=== PATIENT | female | born 1975 | race Native Hawaiian/Other Pacific Islander ===

== ENCOUNTER 2020-10-25 01:47 | Emergency (ER) | payer OTHER ==
[2020-10-25] MEDS ORDERED: ASPIRIN 325 MG TAB PO ONE ×3 (02:43→07:30)
--- NOTE | 2020-10-25 03:26 | XRay Report ---
CHEST 2 VIEWS INDICATION / CLINICAL INFORMATION: chest pain. FINDINGS: SUPPORT DEVICES: None. HEART / MEDIASTINUM: No significant abnormality. LUNGS / PLEURA: No significant pulmonary or pleural abnormality. No pneumothorax. ADDITIONAL FINDINGS: No significant additional findings. IMPRESSION: 1. No acute findings. Signer Name: Koby Ramos MD Signed: 10/25/2020 3:21 AM Workstation Name: [id number]
[2020-10-25 03:29] LABS: Basophils # (Auto) 0.1 K/mm3 (0.0-0.1); Basophils % (Auto) 0.9 % (0.0-1.8); Eosinophils # (Auto) 0.4 K/mm3 (0.0-0.4); Eosinophils % (Auto) 4.7 % (0.0-4.3); Hematocrit 37.2 % (30.3-42.9); Hemoglobin 12.6 gm/dl (10.1-14.3); Lymphocytes # (Auto) 2.8 K/mm3 (1.2-5.4); Lymphocytes % (Auto) 35.6 % (13.4-35.0); Mean Corpuscular HGB Conc 34 % (30-34); Mean Corpuscular Volume 83 fl (79-97); Monocytes # (Auto) 0.5 K/mm3 (0.0-0.8); Monocytes % (Auto) 6.6 % (0.0-7.3); Platelet Count 283 K/mm3 (140-440); Red Blood Count 4.46 M/mm3 (3.65-5.03); Red Cell Distribution Width 14.7 % (13.2-15.2)
[2020-10-25 04:00] LABS: Alanine Aminotransferase 14 units/L (7-56); Albumin 4.8 g/dL (3.9-5); Blood Urea Nitrogen 13 mg/dL (7-17); Calcium 9.8 mg/dL (8.4-10.2); Hemolysis Index 3
[2020-10-25 04:03] LABS: BUN/Creatinine Ratio 22
[2020-10-25] MEDS ORDERED: cloNIDine 0.1 MG TAB PO ONE (06:18)
--- NOTE | 2020-10-25 06:24 | Emergency Department Report ---
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 Patient states she has had her elevated blood pressure x1 year. She has been on hydrochlorothiazide 12.5 mg daily. Patient has been compliant with her medications. For the past 3 days she notes her blood pressure has been elevated as high as 210/152 at home. Patient has an intermittent headache (at the top of her head) that increases when her pressure is high. Headache onset was gradual and currently rated 6/10 in intensity. She denies blurry vision, weakness, numbness, or neck pain or current nausea or vomiting. She also complains of intermittent chest pain radiating to the back. Patient denies chest pain currently. No aggravating or alleviating factors reported. She denies shortness of breath, diaphoresis, or leg edema. She denies family history of CAD and does not smoke cigarettes. Patient reports a negative outpatient stress test last year. - Related Data Previous Rx's Medication Instructions Recorded Last Taken Type labetaloL [Labetalol 100mg TAB] 100 mg PO BID #60 tablet 10/25/20 Unknown Rx Allergies Allergy/AdvReac Type Severity Reaction Status Date / Time No Known Allergies Allergy Verified 10/25/20 02:43 Heart Score - HEART Score History: Slightly suspicious EKG: Normal Age: < 45 Risk factors: 1-2 risk factors Troponin: < normal limit HEART Score: 1 - EKG Read Time Time EKG Completed: 02:47 EKG Read Time: 06:21 ED Review of Systems ROS: Stated complaint: HIGH BP,CHEST PAIN,HEADACHE,NAUSEA Other details as noted in HPI Comment: All other systems reviewed and negative ED Past Medical Hx - Past Medical History Previous Medical History?: Yes Hx Hypertension: Yes - Surgical History Past Surgical History?: No - Social History Smoking Status: Never Smoker Substance Use Type: None - Medications Home Medications: Home Medications Medication Instructions Recorded Confirmed Last Taken Type labetaloL [Labetalol 100mg TAB] 100 mg PO BID #60 tablet 10/25/20 Unknown Rx ED Physical Exam - General Limitations: No Limitations - Other Other exam information: General: No acute distress Head: Atraumatic Eyes: normal appearance ENT: Moist mucous membranes Neck: Normal appearance, no midline tenderness Chest: Clear to auscultation bilaterally CV: Regular rate and rhythm Abdomen: Soft, normal bowel sounds, nontender, nondistended, no rebound or guarding Back: Normal inspection Extremity: Normal inspection, full range of motion, no calf tenderness or leg ed kenneth Neuro: Alert O x 3, no facial asymmetry, speech clear, no gross motor sensory deficit Psych: Appropriate behavior Skin: No rash ED Course Vital Signs 10/25/20 10/25/20 10/25/20 02:41 06:16 06:24 Temperature 98.5 F Pulse Rate 106 H 91 H Respiratory 18 17 18 Rate Blood Pressure 197/100 Blood Pressure 189/115 [Left] O2 Sat by Pulse 99 99 98 Oximetry 10/25/20 06:49 Temperature Pulse Rate 88 Respiratory Rate Blood Pressure 188/94 Blood Pressure [Left] O2 Sat by Pulse Oximetry - Reevaluation(s) Reevaluation #1: 10/25/20 09:25 Current vitals respiratory rate 18, BP 133/69, HR 70, 98% on room air SCOUT score - Scout Score Age > 65: (0) No Aspirin use within the Past 7 Days: (0) No 3 or more CAD Risk Factors: (0) No 2 or more Angina events in past 24 hrs: (0) No Known CAD with more than 50% Stenosis: (0) No Elevated Cardiac Markers: (0) No ST Deviation Greater than 0.5mm: (0) No SCOUT Score: 0 ED Medical Decision Making - Lab Data Result diagrams: 10/25/20 03:04 10/25/20 03:04 Lab Results 10/25/20 10/25/20 10/25/20 Range/Units 03:04 03:04 05:50 WBC 7.9 (4.5-11.0) K/mm3 RBC 4.46 (3.65-5.03) M/mm3 Hgb 12.6 (10.1-14.3) gm/dl Hct 37.2 (30.3-42.9) % MCV 83 (79-97) fl MCH 28 (28-32) pg MCHC 34 (30-34) % RDW 14.7 (13.2-15.2) % Plt Count 283 (140-440) K/mm3 Lymph % (Auto) 35.6 H (13.4-35.0) % Scurry % (Auto) 6.6 (0.0-7.3) % Eos % (Auto) 4.7 H (0.0-4.3) % Baso % (Auto) 0.9 (0.0-1.8) % Lymph # (Auto) 2.8 (1.2-5.4) K/mm3 Scurry # (Auto) 0.5 (0.0-0.8) K/mm3 Eos # (Auto) 0.4 (0.0-0.4) K/mm3 Baso # (Auto) 0.1 (0.0-0.1) K/mm3 Seg Neutrophils % 52.2 (40.0-70.0) % Seg Neutrophils # 4.1 (1.8-7.7) K/mm3 Sodium 138 (137-145) mmol/L Potassium 4.0 (3.6-5.0) mmol/L Chloride 101.1 (98-107) mmol/L Carbon Dioxide 29 (22-30) mmol/L Anion Gap 12 mmol/L BUN 13 (7-17) mg/dL Creatinine 0.6 (0.6-1.2) mg/dL Estimated GFR > 60 ml/min BUN/Creatinine Ratio 22 % Glucose 124 H (65-100) mg/dL Calcium 9.8 (8.4-10.2) mg/dL Total Bilirubin 0.20 (0.1-1.2) mg/dL AST 11 (5-40) units/L ALT 14 (7-56) units/L Alkaline Phosphatase 123 (35-129) units/L Troponin T < 0.010 < 0.010 (0.00-0.029) ng/mL Total Protein 7.6 (6.3-8.2) g/dL Albumin 4.8 (3.9-5) g/dL Albumin/Globulin Ratio 1.7 % - EKG Data -: EKG Interpreted by Mt EKG shows normal: sinus rhythm Rate: normal - EKG Data 10/25/20 07:05 Repeat EKG performed at 7 AM without acute changes or ischemia. - Radiology Data Radiology results: report reviewed CHEST 2 VIEWS INDICATION / CLINICAL INFORMATION: chest pain. FINDINGS: SUPPORT DEVICES: None. HEART / MEDIASTINUM: No significant abnormality. LUNGS / PLEURA: No significant pulmonary or pleural abnormality. No pneumothorax. ADDITIONAL FINDINGS: No significant additional findings. IMPRESSION: 1. No acute findings. - Medical Decision Making 45-year-old female presents to the hospital uncontrolled hypertension despite BP compliance. She has a combination of headache and chest pain complaints which worsen when blood pressure becomes more elevated. Patient does not have any neurologic symptoms or nuchal rigidity. BP is trending downward with labetalol p.o. and symptoms are improving. Patient also provided aspirin and Tylenol. Cardiac work-up unremarkable with a heart score of 1, troponin negative x2, and patient reports a unremarkable outpatient stress test last year. CT angiogram negative for pulmonary embolism or dissection. headache also improved with BP improvement in the absence of neurologic symptoms. Patient will be started on labetalol 100 mg twice daily to take in addition to hydrochlorothiazide 12.5 mg for blood pressure control. Patient follow-up with PMD/Ramos physician encouraged. Critical Care Time: No Critical care attestation.: If time is entered above; I have spent that time in minutes in the direct care of this critically ill patient, excluding procedure time. ED Disposition Clinical Impression: Uncontrolled hypertension, Headache, Chest pain Disposition: 01 HOME / SELF CARE / HOMELESS Is pt being admited?: No Does the pt Need Aspirin: No Condition: Stable Instructions: Nonspecific Chest Pain, Adult, Hypertension, Adult, Hypertension (ED) Additional Instructions: Take the medication as prescribed. Continue your current blood pressure medicine. follow-up with your doctor or doctor/clinic provided. Return if sy mptoms worsen as indicated by your discharge instructions. [place] el medicamento segn lo recetado. Contine con guo medicamento actual para la presin arterial. Seguimiento con guo mdico o mdico/clnica proporcionado. Regrese si los sntomas empeoran segn lo indicado por jimena instrucciones de walter . Prescriptions: labetaloL [Labetalol 100mg TAB] 100 mg PO BID #60 tablet Referrals: PRIMARY CARE, [Primary Care Provider] - 3-5 Days ESTRELLA AUSTIN MD [Staff Physician] - 3-5 Days (cardiology ) Time of Disposition: 09:28 Print Language: ProfStream
--- NOTE | 2020-10-25 07:56 | Cat Scan Report ---
CTA chest with contrast INDICATION : High BP, chest pain with headache and nausea. 100 ml omni 350 . TECHNIQUE: Axial imaging performed through the chest, with contrast bolus timing set to maximize opa cification of the pulmonary arteries. 3-plane MIP reformatted images were obtained. All CT scans at this location are performed using CT dose reduction for ALARA by means of automated exposure control. 100 mL of intravenous contrast administered. COMPARISON: None FINDINGS: Bolus/PTE: Contrast bolus timing is adequate. No filling defect is present to suggest PTE. Mediastinum: Heart and great vessels appear normal. No pathologic mediastinal adenopathy. Lungs: Lungs are clear. Upper abdomen: Limited imaging of the upper abdomen shows nothing acute. There is moderate hepatic steatosis. Bones: Degenerative changes in the spine with nothing acute. IMPRESSION: Negative for PTE. Clear lungs. Signer Name: Scooter Duong MD Signed: 10/25/2020 7:52 AM Workstation Name: [id number]
[2020-10-25] MEDS ORDERED: ACETAMINOPHEN 325 MG TAB PO ONE (08:23)
[2020-10-25 10:14] VITALS: BP 136/76
--- NOTE | 2020-10-25 11:19 | Electrocardiograph Report ---
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
--- NOTE | 2020-10-25 11:20 | Electrocardiograph Report ---
[facility] Test Date: 2020-10-25 Test Time: 07:01:19 Pat Name: ANATOLIY HERRERA Department: Room: Gender: F Office Assistance: VIDHYA : 1975 Requested By: DAKOTA DAVIS Order Number: [id number] Reading MD: Lalo Garcia Measurements Intervals [place] Rate: 87 P: 49 CA: 152 QRS: 8 QRSD: 95 T: 22 QT: 397 QTc: 477 Interpretive Statements Sinus rhythm Low voltage, precordial leads Compared to ECG 10/25/2020 02:47:35 No significant change noted. Electronically Signed On 10-25-2020 11:20:03 EDT by Lalo Garcia
== END 2020-10-25 10:21 | disposition home or self-care (01) ==
LOC: ED 01:47
DX: I10 Essential (primary) hypertension (principal); R51.9 Headache, unspecified; R07.9 Chest pain, unspecified; Z79.899 Other long term (current) drug therapy
CPT/HCPCS: 36415; 71046; 71275; 80053; 84484; 85025; 93005; 99284; Q9967